=== PATIENT | male | born 1990 | race Caucasian/White ===

== ENCOUNTER 2016-05-29 10:28 | Emergency (ER) | payer OTHER ==
[~2016-05-29] VITALS: Ht 182.9 cm; Wt 93.0 kg
[2016-05-29 10:37] VITALS: BP 127/69
--- NOTE | 2016-05-29 11:00 | ED HAND/WRIST INJURY COMPLAINT ---
History of Present Illness General Chief Complaint: Hand or Wrist Injury Stated Complaint: LT HAND/WRIST PAIN (WORK INJURY) Source: patient Exam Limitations: no limitations Vital Signs & Intake/Output Vital Signs & Intake/Output Vital Signs Date Time Temp Pulse Resp B/P Pulse O2 O2 Flow FiO2 Ox Delivery Rate 05/29 1039 96.9 05/29 1037 96.9 69 16 127/69 97 Room Air Allergies Coded Allergies: No Known Allergies (05/29/16) Reconcile Medications Oxycodone HCl/Acetaminophen (Percocet 5-325 MG Tablet) 5 MG-325 MG TABLET 1-2 TAB PO Q6P PRN PAIN Tramadol HCl/Acetaminophen (Tramadol-Acetaminophn 37.5-325) 37.5 MG-325 MG TABLET 1 TAB PO BID PRN PAIN (Reported) Triage Note: PT STATES HE WAS WALKING UP THE STAIRS AND TRIPPED LANDING ON HIS LEFT HAND/WRIST. PT NOW HAVING THROBBING PAIN IN HIS HAND THAT RADIATES INTO HIS FINGERS. Triage Nurses Notes Reviewed? yes HPI: Patient was at work when he tripped over her stool and fell forward and caught himself on his outstretched left hand. Patient denies hitting his head and there is no loss of consciousness. Patient is complaining of pain to the lateral aspect of his left hand and left wrist. Pain increases with movement. There is no radiation. The pain is throbbing. Patient rates the pain as 6 out of 10. There's been no relief with Motrin. Past History Travel History Traveled to [place] past 21 day No Medical History Any Pertinent Medical History? none Surgical History Surgical History: non-contributory Psychosocial History What is your primary language Cypriot Tobacco Use: Quit >30 days ago ETOH Use: occasional use Illicit Drug Use: denies illicit drug use Family History Hx Contributory? No Review of Systems Review of Systems Constitutional: Reports: no symptoms. Respiratory: Reports: no symptoms. Cardiovascular: Reports: no symptoms. Musculoskeletal: Reports: see HPI, joint pain. Neurological/Psychological: Reports: no symptoms. Hematologic/Endocrine: Reports: no symptoms. Immunologic/Allergic: Reports: no symptoms. Physical Exam Physical Exam General Appearance: well developed/nourished, alert, awake, mild distress Eyes: Bilateral: PERRL, EOMI. Neck: normal inspection, supple Wrist Left: pain, soft tissue tenderness Wrist Right: normal range of motion, normal inspection Hand Left: normal inspection, normal range of motion Hand Right: normal inspection, normal range of motion Neurologic/Tendon: normal sensation, normal motor functions Progress Differential Diagnosis: contusion, dislocation, fracture, sprain Plan of Care: Orders Procedure Date/time Status Durable Medical Equipment 05/29 115 Active Diagnostic Imaging: Viewed by Me: Radiology Read. Discussed w/RAD: Radiology Read. Radiology Impression: PATIENT: PARUL NORRIS PRESENT AGE: 25 PATIENT ACCOUNT NO: [id number] : 88 LOCATION: [facility] ORDERING PHYSICIAN: ERIN RIVER MD SERVICE DATE: 05/29/16 EXAM TYPE: RAD - XRY-HAND, LEFT; XRY-WRIST COMPLETE-LEFT EXAMINATION: XR WRIST, LEFT XR HAND, LEFT CLINICAL INFORMATION: Pain, status post trauma. COMPARISON: None TECHNIQUE: Hand 3 views, wrist 4 views. FINDINGS: LEFT WRIST: Scapholunate distance is maintained. Carpal row alignment is maintained. No acute fracture is seen. No dislocation. Joint spaces are maintained. LEFT HAND: No acute fracture is seen. No dislocation. Joint spaces are maintained. No erosions or soft tissue calcification. Normal bone mineralization. IMPRESSION: No radiographic evidence of discrete fracture. Close clinical correlation and follow up. Additional imaging as clinically warranted. DICTATED BY: LATIA NICOLE MD DATE/TIME DICTATED:05/29/161125 CUSTOMS EXAMINER:JOHNNY DATE/TIME TRANSCRIBED:1125 CONFIDENTIAL, DO NOT COPY WITHOUT APPROPRIATE AUTHORIZATION. < Electronically signed in Other Vendor System> SIGNED BY: LATIA NICOLE MD 05/29/161155 Departure Departure Disposition: HOME OR SELF CARE Condition: Stable Clinical Impression Primary Impression: Left wrist sprain Referrals: SHAHEED PAINTER,EWA HSIEH MD,LUCILLE (PCP/Family) Additional Instructions: WEAR SPLINT FOR COMFORT FOLLOW UP WITH [facility] RETURN IF SYMPTOMS WORSEN OR FOR ANY CONCERNS Departure Forms: Customer Survey General Discharge Information Prescriptions: Current Visit Scripts Oxycodone HCl/Acetaminophen (Percocet 5-325 MG Tablet) 1-2 TAB PO Q6P PRN PAIN #12 TAB Procedures Splinting Location: LEFT WRIST Manual Alignment Performed: No Pre-Made Type: velcro Splint: wrist Splint Applied By: splint applied by me Pre-Proc Neuro Vasc Exam: normal Post-Proc Neuro Vasc Exam: normal
[2016-05-29] MEDS ORDERED: TRAMADOL-ACETA1 EACH PO (11:08)
--- NOTE | 2016-05-29 11:56 | RADIOLOGY REPORT ---
EXAMINATION: XR WRIST, LEFT XR HAND, LEFT CLINICAL INFORMATION: Pain, status post trauma. COMPARISON: None TECHNIQUE: Hand 3 views, wrist 4 views. FINDINGS: LEFT WRIST: Scapholunate distance is maintained. Carpal row alignment is maintained. No acute fracture is seen. No dislocation. Joint spaces are maintained. LEFT HAND: No acute fracture is seen. No dislocation. Joint spaces are maintained. No erosions or soft tissue calcification. Normal bone mineralization. IMPRESSION: No radiographic evidence of discrete fracture. Close clinical correlation and follow up. Additional imaging as clinically warranted.
[2016-05-29] MEDS ORDERED: PERCOCET 5-3251 EACH PO (12:05)
== END 2016-05-29 12:16 ==
LOC: ERH 10:28
DX: S63.502A Unspecified sprain of left wrist, initial encounter (principal); W18.09XA Striking against other object with subsequent fall, initial encounter; Y93.01 Activity, walking, marching and hiking; Y92.9 Unspecified place or not applicable
CPT/HCPCS: 73110-LT; 73130-LT